=== PATIENT | female | born 1955 | race Caucasian/White ===

== ENCOUNTER 2020-02-11 10:09 | Emergency (ER) | payer OTHER ==
[~2020-02-11] VITALS: Ht 167.6 cm; Wt 74.8 kg
[2020-02-11] MEDS ORDERED: ASPI81CH PO (10:17)
[2020-02-11] MEDS ORDERED: AMLO10 PO (10:17)
[2020-02-11] MEDS ORDERED: CALCIUM 600 +1 EA11 PO (10:17)
[2020-02-11] MEDS ORDERED: ATOR20 PO (10:17)
[2020-02-11] MEDS ORDERED: FLUT.05NI (10:18)
[2020-02-11] MEDS ORDERED: Catapres0.2 MG PO (10:18)
[2020-02-11] MEDS ORDERED: HYDRA25 PO (10:19)
[2020-02-11] MEDS ORDERED: NOVOLOG100 UNIT/2 SC (10:19)
[2020-02-11] MEDS ORDERED: NOVOLOG100 UNIT/2 (10:19)
[2020-02-11] MEDS ORDERED: HYDCHL25 PO (10:19)
[2020-02-11] MEDS ORDERED: BASAGLAR K100 UNIT/1 SC (10:20)
[2020-02-11] MEDS ORDERED: LISI20 PO (10:21)
[2020-02-11] MEDS ORDERED: LITH300C PO (10:21)
[2020-02-11] MEDS ORDERED: MELA3 PO (10:21)
[2020-02-11] MEDS ORDERED: EUTHYROX137 MCG PO (10:21)
[2020-02-11] MEDS ORDERED: QUET25 PO (10:22)
[2020-02-11] MEDS ORDERED: METF500 PO (10:22)
[2020-02-11] MEDS ORDERED: NITR100CA PO (10:22)
[2020-02-11] MEDS ORDERED: QUET200 PO (10:22)
[2020-02-11] MEDS ORDERED: Hair, Skin & N1 EACH PO (10:22)
[2020-02-11] MEDS ORDERED: ROPI1 PO (10:23)
[2020-02-11] MEDS ORDERED: SENN187 PO (10:23)
[2020-02-11 11:10] LABS: BASOPHILS ABSOLUTE AUTO 0.05 K/mm3 (0.00-0.23); BASOPHILS PERCENT AUTO 1 % (0-2); EOSINOPHILS ABSOLUTE AUTO 0.22 K/mm3 (0.00-0.68); EOSINOPHILS PERCENT AUTO 3 % (0-6); IMMATURE GRAN ABSOLUTE AUTO 0.01 K/mm3 (0.00-0.10); IMMATURE GRAN PERCENT AUTO 0 % (0-1); LYMPHOCYTES ABSOLUTE AUTO 2.27 K/mm3 (0.84-5.20); LYMPHOCYTES PERCENT AUTO 30 % (21-46); MONOCYTES ABSOLUTE AUTO 0.52 K/mm3 (0.16-1.47); MONOCYTES PERCENT AUTO 7 % (4-13); Mean Corpuscular HGB 30.2 pg (26.0-34.0); Mean Corpuscular HGB Conc 32.6 g/dL (31.5-36.5); Mean Corpuscular Volume 93 fL (80-100); Mean Platelet Volume 11.3 fL (9.1-12.4); NEUTROPHILS ABSOLUTE AUTO 4.43 K/mm3 (1.96-9.15); NEUTROPHILS PERCENT AUTO 59 % (41-73); Platelet Count 162 K/mm3 (150-400); RDW Standard Deviation 51.7 fL (35.1-46.3); Red Blood Cell Count 4.63 M/mm3 (3.80-5.20)
[2020-02-11 11:12] LABS: Source, Urine Clean Catch
[2020-02-11 11:30] LABS: Alanine Aminotransfer (ALT/SGP 118 U/L (12-78); Albumin, Blood 3.1 g/dL (3.4-5.0); Albumin/Globulin Ratio 0.7 (0.8-1.8); Alk Phos 54 U/L (50-136); Anion Gap 3 mmol/L (6-16); Aspartate Aminotrans (AST/SGOT 50 U/L (12-37); Bilirubin, Total 0.2 mg/dL (0.1-1.0); Blood Urea Nitrogen 27 mg/dL (8-24); Bun/Creatinine Ratio 39.2 (12.0-20.0); CO2, Blood 29 mmol/L (21-32); Calcium, Blood 10.6 mg/dL (8.5-10.1); Chloride, Blood 106 mmol/L (98-108); Creatinine, Blood 0.69 mg/dL (0.40-1.00); Globulin, Blood 4.2 g/dL (2.2-4.0); Glomerular Filtration Rate >60 (60-); Glucose, Blood 259 mg/dL (70-99); Potassium, Blood 4.9 mmol/L (3.5-5.5); Sodium, Blood 138 mmol/L (136-145); Total Protein, Blood 7.3 g/dL (6.4-8.2)
[2020-02-11 11:41] LABS: Free Thyroxine 1.08 ng/dL (0.70-1.60); Thyroid Stimulating Hormone 27.5 uIU/mL (0.360-4.800)
[2020-02-11 12:09] LABS: Bilirubin, Urine Neg (Neg); Blood, Urine Neg (Neg); Glucose Qualitative, Urine 3+ (Neg); Ketones, Urine Neg (Neg); Leukocyte Esterase, Urine Neg (Neg); Nitrite, Urine Neg (Neg); Protein, Urine 3+ (Neg); Specific Gravity, Urine 1.015 (1.003-1.022); Urobilinogen, Urine NORM (Normal)
[2020-02-11 12:34] LABS: Appearance, Urine Hazy (Clear); Color, Urine Yellow (P-Yellow)
[2020-02-11 12:36] LABS: Bacteria Mod /hpf; Red Blood Cells, Urine 0-2 /hpf (0-2); Squamous Epithelial Cells Mod /hpf (Few)
== END 2020-02-11 15:00 | disposition home or self-care (01) ==
LOC: ER 10:09
PROVIDERS: Emergency Medicine
DX: E11.65 Type 2 diabetes mellitus with hyperglycemia (principal); E03.9 Hypothyroidism, unspecified; I10 Essential (primary) hypertension; Z79.82 Long term (current) use of aspirin; Z79.899 Other long term (current) drug therapy; Z79.4 Long term (current) use of insulin
CPT/HCPCS: 80053; 81001; 84439; 84443; 85025; 87086; 99285

== ENCOUNTER 2021-03-24 11:08 | Observation (INO) | payer OTHER ==
[~2021-03-24] VITALS: Ht 162.6 cm; Wt 63.6 kg
[~2021-03-24 11:08] MED LIST: AMLO10 PO; ASPI81CH PO; ATOR20 PO; BASAGLAR K100 UNIT/1 SC; CALCIUM 600 +1 EA11 PO; Catapres0.2 MG PO; EUTHYROX137 MCG PO; FLUT.05NI; HYDCHL25 PO; HYDRA25 PO; Hair, Skin & N1 EACH PO; LISI20 PO; LITH300C PO; MELA3 PO; METF500 PO; NITR100CA PO; NOVOLOG100 UNIT/2; NOVOLOG100 UNIT/2 SC; QUET200 PO; QUET25 PO; ROPI1 PO; SENN187 PO
[2021-03-24 11:26] LABS: Source, Urine Catheter
[2021-03-24 11:29] LABS: Appearance, Urine Clear (Clear); Bilirubin, Urine Neg (Neg); Blood, Urine Neg (Neg); Color, Urine Yellow (P-Yellow); Glucose Qualitative, Urine Neg (Neg); Ketones, Urine Neg (Neg); Leukocyte Esterase, Urine 2+ (Neg); Nitrite, Urine Neg (Neg); Protein, Urine 3+ (Neg); Specific Gravity, Urine 1.015 (1.003-1.022); Urobilinogen, Urine NORM (Normal)
[2021-03-24 11:38] LABS: BASOPHILS ABSOLUTE AUTO 0.05 K/mm3 (0.00-0.23); BASOPHILS PERCENT AUTO 1 % (0-2); EOSINOPHILS PERCENT AUTO 2 % (0-6); Hematocrit 36.9 % (33.0-51.0); Hemoglobin 12.4 g/dL (11.5-16.0); IMMATURE GRAN ABSOLUTE AUTO 0.02 K/mm3 (0.00-0.10); IMMATURE GRAN PERCENT AUTO 0 % (0-1); LYMPHOCYTES ABSOLUTE AUTO 2.35 K/mm3 (0.84-5.20); LYMPHOCYTES PERCENT AUTO 27 % (21-46); MONOCYTES ABSOLUTE AUTO 0.55 K/mm3 (0.16-1.47); MONOCYTES PERCENT AUTO 6 % (4-13); Mean Corpuscular HGB 28.8 pg (26.0-34.0); Mean Corpuscular HGB Conc 33.6 g/dL (31.5-36.5); Mean Corpuscular Volume 86 fL (80-100); Mean Platelet Volume 10.2 fL (9.1-12.4); NEUTROPHILS ABSOLUTE AUTO 5.54 K/mm3 (1.96-9.15); NEUTROPHILS PERCENT AUTO 64 % (41-73); Platelet Count 234 K/mm3 (150-400); RDW Coefficient Variation 16.9 % (11.7-14.2); White Blood Cell Count 8.71 K/mm3 (4.00-11.30)
[2021-03-24] MEDS ORDERED: Nicoderm Cq1 EAC1 TOP (11:43)
[2021-03-24] MEDS ORDERED: ONDA4ODT MM (11:45)
[2021-03-24] MEDS ORDERED: WEGOVY0.25 MG/0. SC (11:47)
[2021-03-24] MEDS ORDERED: ATOR10 PO (11:48)
[2021-03-24] MEDS ORDERED: METO25 PO (11:48)
[2021-03-24 11:56] LABS: Red Blood Cells, Urine 0-2 /hpf (0-2); Squamous Epithelial Cells Few /hpf (Few)
[2021-03-24 11:57] LABS: Amorphous Mod (0-Heavy); Bacteria Many /hpf
[2021-03-24 12:01] LABS: Alanine Aminotransfer (ALT/SGP 86 U/L (12-78); Albumin, Blood 2.6 g/dL (3.4-5.0); Albumin/Globulin Ratio 0.7 (0.8-1.8); Alk Phos 34 U/L (50-136); Anion Gap 3 mmol/L (6-16); Aspartate Aminotrans (AST/SGOT 31 U/L (12-37); Bilirubin, Total 0.2 mg/dL (0.1-1.0); Blood Urea Nitrogen 25 mg/dL (8-24); Bun/Creatinine Ratio 33.5 (12.0-20.0); CO2, Blood 26 mmol/L (21-32); Calcium, Blood 9.4 mg/dL (8.5-10.1); Chloride, Blood 108 mmol/L (98-108); Creatinine, Blood 0.75 mg/dL (0.40-1.00); Globulin, Blood 3.8 g/dL (2.2-4.0); Glomerular Filtration Rate >60 (60-); Glucose, Blood 277 mg/dL (70-99); Potassium, Blood 4.8 mmol/L (3.5-5.5); Sodium, Blood 137 mmol/L (136-145); Total Protein, Blood 6.4 g/dL (6.4-8.2)
[2021-03-24 16:07] LABS: Lithium 0.82 mmol/L (0.60-1.20)
--- NOTE | 2021-03-24 20:32 | NUR ---
NEW ADMIT PT ARRIVED TO 350 AT 2019. ADMITTED FOR LITHIUM TOXICITY & INCREASED CONFUSION. PT REPETITIVELY STATING "ELDA, ELDA". PT SLIDE TRANSFER TO BED. CALL LIGHT & BED ALARM IN PLACE. WILL MONITOR.
[2021-03-24 23:28] LABS: Lithium 0.58 mmol/L (0.60-1.20)
[2021-03-25] MEDS ORDERED: B-12500 MC2 (00:37)
[2021-03-25] MEDS ORDERED: TIOT18 INH (00:48)
--- NOTE | 2021-03-25 05:03 | NUR ---
SHIFT SUMMARY PT ADMITTED LAST NIGHT FOR INCREASED CONFUSION & LITHIUM TOXICITY. AOX1-SELF ONLY. STATES SHES IN "[place]". UNABLE TO FOLLOW ANY DIRECTIONS. YELLS OUT "MAMMA" CONSTANTLY WHILE AWAKE & ACTS CHILD LIKE, FEARFUL, SCARED, STATES "OWE" & USES SIMPLE 1-2 WORD STATEMENTS "I HURT". IMPULSIVE. CONFUSED. CAN BE IRRITABLE & GETS AGITATED c STAFF DURING CARE. WAS HITTING HERSELF IN HEAD WHILE MEMORIAL MARKER DESIGNER ATTEMPTED VITALS THIS AM. HAS PERIODS WHERE SHE IS COMPLETELY LUCID & MAKES COMMENTS LIKE "I WASNT THAT NICE TO YOU," OR "EVERYONE GOT A FLU SHOT AT [facility] IN [place]." WILL PINCH OR GRAB STAFF WRISTS WHILE TRYING TO GET BP, TAKES 2-3 PPL TO GET VITALS. VITALS HAVE BEEN STABLE SINCE PT HAS ARRIVED TO FLOOR. TELE NSR @60. INCONTINENT OF URINE. REPORTS "TOOTH PAIN & STOMACH ACHE ALLOVER," GAVE TYLENOL 1X & PT ABLE TO REST FOR ROUGHLY 3HRS STRAIGHT. GRIMACES c ABD PALPATION. ACTIVE BT. DENIES N/V. NO S/SX SOB. HASNT HAD BM THIS SHIFT. JAZMÍN CONSULT PLACED. NEEDS ASSISTANCE & QUEING c EATING. ATE 1/2 SANDWHICH & PUDDING @HS. PER REPORT PT HAS LOSS 26LBS IN LAST MONTH & HASNT BEEN EATING OR DRINKING MUCH @AR. CALL LIGHT & BED ALARM IN PLACE. TM.
[2021-03-25 05:04] LABS: BASOPHILS ABSOLUTE AUTO 0.07 K/mm3 (0.00-0.23); BASOPHILS PERCENT AUTO 1 % (0-2); EOSINOPHILS ABSOLUTE AUTO 0.21 K/mm3 (0.00-0.68); EOSINOPHILS PERCENT AUTO 3 % (0-6); Hematocrit 35.9 % (33.0-51.0); Hemoglobin 11.6 g/dL (11.5-16.0); IMMATURE GRAN ABSOLUTE AUTO 0.02 K/mm3 (0.00-0.10); IMMATURE GRAN PERCENT AUTO 0 % (0-1); LYMPHOCYTES ABSOLUTE AUTO 2.77 K/mm3 (0.84-5.20); LYMPHOCYTES PERCENT AUTO 35 % (21-46); MONOCYTES ABSOLUTE AUTO 0.58 K/mm3 (0.16-1.47); MONOCYTES PERCENT AUTO 7 % (4-13); Mean Corpuscular HGB Conc 32.3 g/dL (31.5-36.5); Mean Corpuscular Volume 87 fL (80-100); Mean Platelet Volume 10.5 fL (9.1-12.4); NEUTROPHILS ABSOLUTE AUTO 4.34 K/mm3 (1.96-9.15); NEUTROPHILS PERCENT AUTO 54 % (41-73); Platelet Count 234 K/mm3 (150-400); RDW Coefficient Variation 17.2 % (11.7-14.2); RDW Standard Deviation 54.4 fL (35.1-46.3); Red Blood Cell Count 4.15 M/mm3 (3.80-5.20); White Blood Cell Count 7.99 K/mm3 (4.00-11.30)
[2021-03-25 06:00] LABS: Lithium 0.43 mmol/L (0.60-1.20)
[2021-03-25 06:12] LABS: Alanine Aminotransfer (ALT/SGP 72 U/L (12-78); Albumin, Blood 2.5 g/dL (3.4-5.0); Albumin/Globulin Ratio 0.8 (0.8-1.8); Alk Phos 33 U/L (50-136); Anion Gap 5 mmol/L (6-16); Aspartate Aminotrans (AST/SGOT 24 U/L (12-37); Bilirubin, Total 0.2 mg/dL (0.1-1.0); Blood Urea Nitrogen 16 mg/dL (8-24); Bun/Creatinine Ratio 25.6 (12.0-20.0); CO2, Blood 21 mmol/L (21-32); Calcium, Blood 8.8 mg/dL (8.5-10.1); Chloride, Blood 117 mmol/L (98-108); Creatinine, Blood 0.63 mg/dL (0.40-1.00); Globulin, Blood 3.1 g/dL (2.2-4.0); Glomerular Filtration Rate >60 (60-); Glucose, Blood 183 mg/dL (70-99); Magnesium, Blood 1.9 mg/dL (1.6-2.4); Sodium, Blood 143 mmol/L (136-145); Total Protein, Blood 5.6 g/dL (6.4-8.2)
--- NOTE | 2021-03-25 07:39 | NUR ---
POISON CONTROL- POISON CONTROL NOTIFIED PER ORDER OF LITHIUM TOXICITY. LEVELS NOTED TO THEM AND DOWN TRENDING. PER POISON CONTROL THEY WILL CHECK BACK IN ONE MORE TIME TODAY TO FOLLOW UP BUT NO OTHER RECOMMENDATIONS.
--- NOTE | 2021-03-25 16:48 | NUR ---
PT IS ALERT ORIENTED TO SELF ONLY AT THIS TIME. THE PT APPEARS TO BE BREATHING EASILY ON RA AT THIS TIME. THE PT HAS HAD A FEW OUTBURST OF AGITATION MORE THIS AFTERNOON SERAQUEL WAS GIVEN THIS AFTERNOON. OTHERWISE, THE PT HAS BEEN MOSTLY COOPERATIVE AND SOMULANT. THE PT WAS ABLE TO WORK WITH THE PHYSICAL THERAPIST TODAY AND AMBULATED TO THE BATHROOM. BED ALARM ON, CALL LIGHT IN REACH, WILL CONTINUE TO MONITOR AND ASSESS FOR CHANGES
--- NOTE | 2021-03-26 05:34 | NUR ---
PATIENT IS A&OX2. KNOWS SHE IS IN THE HOSPITAL BUT DOES NOT KNOW WHY. SHE STATES SHE WAS IN THE [facility]. PATIENT IS COMPLIANT WITH MEDICATION ADMINISTRATION. SWALLOWED PILLS ONE AT A TIME WITH WATER, TOOK MULTIPLE CUES. MAY DO BETTER IN . NO BEHAVIORAL OUTBURSTS ON NOC. SCREAMS OUT MAMA AND INTERMITTENT CONFUSION. INCONT/CONT HAD MULTIPLE WET BRIEFS BUT ALSO WAS ABLE TO VOID ON BSC. TELE NSR PER CABLE TOOL DRILLER
[2021-03-26 10:17] LABS: BASOPHILS ABSOLUTE AUTO 0.06 K/mm3 (0.00-0.23); BASOPHILS PERCENT AUTO 1 % (0-2); EOSINOPHILS ABSOLUTE AUTO 0.18 K/mm3 (0.00-0.68); EOSINOPHILS PERCENT AUTO 3 % (0-6); Hematocrit 36.3 % (33.0-51.0); Hemoglobin 11.9 g/dL (11.5-16.0); IMMATURE GRAN ABSOLUTE AUTO 0.01 K/mm3 (0.00-0.10); IMMATURE GRAN PERCENT AUTO 0 % (0-1); LYMPHOCYTES ABSOLUTE AUTO 2.15 K/mm3 (0.84-5.20); LYMPHOCYTES PERCENT AUTO 34 % (21-46); MONOCYTES ABSOLUTE AUTO 0.37 K/mm3 (0.16-1.47); MONOCYTES PERCENT AUTO 6 % (4-13); Mean Corpuscular HGB 28.4 pg (26.0-34.0); Mean Corpuscular HGB Conc 32.8 g/dL (31.5-36.5); Mean Corpuscular Volume 87 fL (80-100); Mean Platelet Volume 9.9 fL (9.1-12.4); NEUTROPHILS ABSOLUTE AUTO 3.61 K/mm3 (1.96-9.15); NEUTROPHILS PERCENT AUTO 57 % (41-73); Platelet Count 203 K/mm3 (150-400); RDW Coefficient Variation 17.6 % (11.7-14.2); RDW Standard Deviation 56.1 fL (35.1-46.3); Red Blood Cell Count 4.19 M/mm3 (3.80-5.20); White Blood Cell Count 6.38 K/mm3 (4.00-11.30)
[2021-03-26 10:47] LABS: Anion Gap 6 mmol/L (6-16); Blood Urea Nitrogen 14 mg/dL (8-24); Bun/Creatinine Ratio 23.2 (12.0-20.0); CO2, Blood 20 mmol/L (21-32); Calcium, Blood 8.2 mg/dL (8.5-10.1); Chloride, Blood 115 mmol/L (98-108); Glomerular Filtration Rate >60 (60-); Glucose, Blood 362 mg/dL (70-99); Potassium, Blood 4.1 mmol/L (3.5-5.5); Sodium, Blood 141 mmol/L (136-145)
--- NOTE | 2021-03-26 16:58 | NUR ---
PT IS A/OX2 PERSON AND PLACE. THE PT CONTINUES TO ASK WHAT BROUGHT HER HERE TO THE HOSPITAL, [facility]. PT DOES SEEM MORE COGNITIVE CLEAR COMPARED TO YESTERDAY BENJAMÍN. THE PT WAS AGGITATED THIS AM A DOSE OF SERAQUEL WAS GIVEN AND SO FAR THE PT HAS BEEN CALMER. PT HAS HAD A GOOD APPETITE AND HAS BEEN DRINKING FLUIDS. THE PT TRIED TO WEAR THE ORDERED SCD'S , HOWEVER, BECAME FRUSTRATED AND ANGRY WITH THEM AFTER A SHORT WHILE AND DEMANDED TO TAKE THEM OFF. CALL LIGHT IN REACH. BED ALARM ON WILL CONTINUE TO MONITOR AND ASSESS FOR CHANGES
--- NOTE | 2021-03-27 03:58 | NUR ---
A&OX2 REMAINS WITH CONFUSION, INTERMITTENT BEHAVIORAL OUTBURSTS ON NOC, EASILY REDIRECTED. ABLE TO USE BSC WITH SBA FOR VOIDING. ALERTS STAFF WHEN SHE NEEDS TO URINATE. NO BM >2 DAYS MIRALAX GIVEN. PATIENT REFUSED SUPPOSITORY EDUCATION ATTEMPTED, PATIENT GREW FRUSRATED. HAS DIFFICULTY FOLLOWING COMMANDS TAKES NUMEROUS CUES. NS @125.
[2021-03-27 05:06] LABS: BASOPHILS ABSOLUTE AUTO 0.06 K/mm3 (0.00-0.23); BASOPHILS PERCENT AUTO 1 % (0-2); EOSINOPHILS ABSOLUTE AUTO 0.16 K/mm3 (0.00-0.68); EOSINOPHILS PERCENT AUTO 3 % (0-6); Hemoglobin 12.3 g/dL (11.5-16.0); IMMATURE GRAN ABSOLUTE AUTO 0.01 K/mm3 (0.00-0.10); IMMATURE GRAN PERCENT AUTO 0 % (0-1); LYMPHOCYTES PERCENT AUTO 39 % (21-46); MONOCYTES ABSOLUTE AUTO 0.36 K/mm3 (0.16-1.47); MONOCYTES PERCENT AUTO 6 % (4-13); Mean Corpuscular HGB 28.5 pg (26.0-34.0); Mean Corpuscular HGB Conc 32.4 g/dL (31.5-36.5); Mean Corpuscular Volume 88 fL (80-100); Mean Platelet Volume 10.1 fL (9.1-12.4); NEUTROPHILS ABSOLUTE AUTO 3.01 K/mm3 (1.96-9.15); NEUTROPHILS PERCENT AUTO 51 % (41-73); Platelet Count 210 K/mm3 (150-400); RDW Coefficient Variation 17.6 % (11.7-14.2); RDW Standard Deviation 57.1 fL (35.1-46.3); Red Blood Cell Count 4.31 M/mm3 (3.80-5.20)
[2021-03-27 06:08] LABS: Anion Gap 6 mmol/L (6-16); Blood Urea Nitrogen 16 mg/dL (8-24); Bun/Creatinine Ratio 21.6 (12.0-20.0); CO2, Blood 23 mmol/L (21-32); Calcium, Blood 8.7 mg/dL (8.5-10.1); Chloride, Blood 112 mmol/L (98-108); Creatinine, Blood 0.74 mg/dL (0.40-1.00); Glomerular Filtration Rate >60 (60-); Glucose, Blood 352 mg/dL (70-99); Potassium, Blood 4.7 mmol/L (3.5-5.5); Sodium, Blood 141 mmol/L (136-145)
--- NOTE | 2021-03-27 17:31 | NUR ---
SHIFT SUMMARY: PT A/O X 2 NEEDS RE-ORIENTATED AT TIMES TO SITUATION. PT SLEPT MOST OF THE MORNING. SHE HAS HAD SEVERAL OUTPUTS OF URINE. SHE IS CONTINENT/INCONTINENT AT THIS TIME. PT BP HAS BEEN ELEVATED T/OUT THE DAY. PRN HYDRALAZINE GIVEN PER MAR FOR SBP OF 184. HAS ADUSTED BP MEDICATIONS AND ALSO INCREASED SLIDING SCALE INSULIN AND WILL START LANTUS TONIGHT FOR ELEVATED BS IN 300'S. PT C/O BLADDER SPASMS AND BECAME VERY AGITATED THIS EVENING. TYLENOL GIVEN FOR BLADDER SPASMS AND PT EDUCATED ON SYMPTOMS OF UTI. PT CONTINUED TO YELL AND HAVE BEHAVIORS DESPITE EXPLANATION AND ADDRESSING SYMPTOMS SO PRN SEROQUEL GIVEN FOR AGITATION.
--- NOTE | 2021-03-27 21:11 | NUR ---
PHYSICIAN COMMUNICATION CONTACTED FULLER BRUSH MAN PHYSICIAN, DR GUTIERREZ, TO NOTIFY HIM THAT THE PATIENT HAD A BLOOD SUGAR OF 367 AND WAS SCHEDULED TO HAVE COVERAGE OF 10 UNITS OF SEMGLEE AT 2100 AND MEDIUM SLIDING SCALE AT MEAL TIMES. NO ORDERS GIVEN. ALSO NOTIFIED THAT THE PATIENT WAS REQUESTING A NASAL DECONGESTANT SPRAY. DR GUTIERREZ ORDERED AFRIN NASAL SPRAY BID PRN.
[2021-03-28 05:12] LABS: BASOPHILS ABSOLUTE AUTO 0.04 K/mm3 (0.00-0.23); BASOPHILS PERCENT AUTO 1 % (0-2); EOSINOPHILS ABSOLUTE AUTO 0.16 K/mm3 (0.00-0.68); EOSINOPHILS PERCENT AUTO 3 % (0-6); Hematocrit 35.5 % (33.0-51.0); Hemoglobin 11.5 g/dL (11.5-16.0); IMMATURE GRAN ABSOLUTE AUTO 0.01 K/mm3 (0.00-0.10); IMMATURE GRAN PERCENT AUTO 0 % (0-1); LYMPHOCYTES PERCENT AUTO 34 % (21-46); MONOCYTES ABSOLUTE AUTO 0.34 K/mm3 (0.16-1.47); MONOCYTES PERCENT AUTO 6 % (4-13); Mean Corpuscular HGB 28.2 pg (26.0-34.0); Mean Corpuscular HGB Conc 32.4 g/dL (31.5-36.5); Mean Corpuscular Volume 87 fL (80-100); Mean Platelet Volume 10.2 fL (9.1-12.4); NEUTROPHILS ABSOLUTE AUTO 3.17 K/mm3 (1.96-9.15); NEUTROPHILS PERCENT AUTO 57 % (41-73); Platelet Count 195 K/mm3 (150-400); RDW Coefficient Variation 17.7 % (11.7-14.2); Red Blood Cell Count 4.08 M/mm3 (3.80-5.20); White Blood Cell Count 5.62 K/mm3 (4.00-11.30)
[2021-03-28 06:00] LABS: Anion Gap 5 mmol/L (6-16); Blood Urea Nitrogen 20 mg/dL (8-24); CO2, Blood 23 mmol/L (21-32); Calcium, Blood 8.5 mg/dL (8.5-10.1); Chloride, Blood 112 mmol/L (98-108); Creatinine, Blood 0.74 mg/dL (0.40-1.00); Glomerular Filtration Rate >60 (60-); Glucose, Blood 339 mg/dL (70-99); Potassium, Blood 4.1 mmol/L (3.5-5.5); Sodium, Blood 140 mmol/L (136-145)
--- NOTE | 2021-03-28 06:29 | NUR ---
SHIFT SUMMARY PATIENT ALERT AND ORIENTED X2. MEDICATED PER EMAR FOR PAIN AND NASAL CONGESTION. SHE HAD NO COMPLAINTS OF SHORTNESS OF BREATH. BED IN LOWEST POSITION WITH WHEELS LOCKED AND ALARM ON. CALL LIGHT WITHIN REACH. REPORT GIVEN TO ONCOMING RN.
--- NOTE | 2021-03-28 17:19 | NUR ---
SHIFT SUMMARY PATIENT IS ALERT AND ORIENTED X2. PATIENT BECOMES AGRESSIVE AT TIMES AND NEEDS TO BE REORIENTATED TO CALM DOWN. PATIENT HAS BEEN A ONE PERSON ASSIST TO BEDSIDE COMMODE. PATIENT DOESNT CALL APPROPRIATELY AND JUST USES BEDSIDE COMMODE URGENTLY. PATIENTS CBGS HAVE BEEN ELEVATED AND NOTIFIED. IV REMAINS PATENT. NO ACUTE EVENTS THIS SHIFT. VITAL SIGNS REVIEWED. CALL LIGHT IN PLACE. WILL MONITOR UNTIL SHIFT CHANGE.
--- NOTE | 2021-03-29 06:04 | NUR ---
SHIFT SUMMARY PATIENT ALERT AND ORIENTED X2. HAD NO COMPLAINTS OF PAIN OR SHORTNESS OF BREATH. NO ACUTE ISSUES NOTED OVERNIGHT. BED IN LOWEST POSITION WITH WHEELS LOCKED AND ALARM ON. CALL LIGHT WITHIN REACH. REPORT GIVEN TO ONCOMING RN.
--- NOTE | 2021-03-29 16:49 | NUR ---
SHIFT SUMMARY PATIENT IS ALERT AND ORIENTED X2 WITH CONFUSION. PATIENT HAS BEEN PLEASENT AND COOPERATIVE WITH CARE WITH MILD AGRESSION AND FRUSTRATION. PATIENT HAS HAD ELEVATED CBG IN THE 300-400S AND HAS HAD LONG ACTING INSULIN ADDED FOR COVERAGE. PATIENT HAS HAD NO ACUTE EVENTS THIS SHIFT. VITAL SIGNS REVIEWED. CALL LIGHT IN PLACE. WILL MONITOR UNTIL SHIFT CHANGE.
--- NOTE | 2021-03-29 22:52 | NUR ---
PHYSICIAN COMMUNICATION CONTACTED AIRCRAFT STRUCTURAL DESIGN ENGINEER PHYSICIAN, DR. JOHNSON, TO NOTIFY HIM THAT THE PATIENT IS COMPLAINING OF PAIN FROM RESTLESS LEGS. DR JOHNSON ORDERED O.25 MG REQUIP DAILY AT BEDTIME NEEDED FOR RESTLESS LEGS.
--- NOTE | 2021-03-30 05:48 | NUR ---
SHIFT SUMMARY PATIENT ALERT AND ORIENTED X2. MEDICATED PER EMAR FOR PAIN. NO COMPLAINTS OF SHORTNESS OF BREATH. NO ACUTE ISSUES NOTED OVERNIGHT. BED IN LOWEST POSITION WITH WHEELS LOCKED AND ALARM ON. CALL LIGHT WITHIN REACH. REPORT GIVEN TO ONCOMING RN.
--- NOTE | 2021-03-30 17:45 | NUR ---
PATIENT HAD A GOOD DAY. HEADACHE RESOLVED. VERY PLEASANT AND COOPERATIVE WITH CARE THIS EVENING. BLOOD SUGARS ELEVATED, INCREASED TO HIGH SLIDING SCALE. SKIN INTACT. CONTINENT OF URINE AND STOOL. IV TO R WRIST WNL AND SL. TELE D/C'D. PATIENT AWAITING PLACEMENT.
--- NOTE | 2021-03-31 04:24 | NUR ---
SUMMARY: PT A/OX3 BUT IS OCCASIONALLY FORGETFUL TO EVENT W/REMINDERS PROVIDED PRN. SHE CALLS APPROPRIATELY TO SPECIFY NEEDS AND WAS PLEASANT AND COOPERATIVE W/CARE. SHE'S UP AD ANNAMARIA TO BSC AND SBA FOR DISTANCE. TYLENOL RECIEVED PRN FOR TOLERABLE RELIEF OF MILLER AND SNACKS PROVIDED PER PT REQUEST. NO ACUTE CHANGES, VSS/AFEBRILE. PLACEMENT PENDING. WCTM AND REPORT TO DAY RN.
--- NOTE | 2021-03-31 17:03 | NUR ---
PATIENT A/OX3 THIS SHIFT, UP INDEPENDENTLY TO BSC. UP WITH FWW AND GB IN HALLS, WOEKED WITH PT/OT TODAY. PATIENT HAS BEEN CONSTIPATED, BOWEL CARE ORDERED AND SHE WAS ABLE TO HAVE A BM TODAY. VSS, ON RA. BLOOD GLUCSE ELEVATED TODAY, DIABETIC MEDS WERE ADJUSTED. SKIN INTACT. PLEASANT AND COOPERATIVE WITH CARE TODAY. GUARDIANSHIP LETTER IN CHART. PATIENT AWAITING PLACEMENT.
--- NOTE | 2021-04-01 04:44 | NUR ---
SHIFT SUMMARY PT IS AA0X3 . PT I STILL COMPLAINING OF CONSTIPATION.VSS REVIEWED. ALL MEDS GIVEN PER EMAR. PT IS INDEPENDENT TO BSC. PT IS ABLE TO MAKE HER NEEDS KNOWN. NO COMPLAINTS OF PAIN OR SOB. CALL LIGHT IN REACH. WILL CONTINUE TO MONITOR .
--- NOTE | 2021-04-01 16:46 | NUR ---
SHIFT SUMMARY PT AWAKE AT START OF SHIFT. INDEPENDENT IN AND TO BTM. PT C/O CONSTIPATION. BOWEL CARE GIVEN. PT LATER REQUESTED MORE BOWEL CARE; MIRALAX GIVEN WITH APPLE JUICE. DR ANDRADE IN TO SEE PT SOON AFTER. PT REQUESTED AND INSISTED ON RECEIVING A SUPPOSITORY; NEW ORDERS PLACED. PT IS VERY FORGETFUL AND DOES NOT REMEMBER WHEN THE DR'S COME BY AND TALK WITH HER. DR JOHNSON AND DR ANDRADE BOTH IN TO SEE PT AND PT DOES NOT REMEMBER. PT UP TO SHOWER THIS AFTERNOON. LINENS AND GOWN CHANGED. PT BACK TO BED. CALL LT IN REACH.
--- NOTE | 2021-04-02 04:26 | NUR ---
SHIFT SUMMARY PT IS AWAKE AND ALERT TO HERSELF . PT IS CONFUSED AND FORGETFUL.WILL ASK THE SAME QUESTION OVER AND OVER.ALL MEDS WERE GIVEN PER EMAR . ALL BOWEL CARE GIVEN. PT HAD ONE BM FOR THE NIGHT. PT WAS AGITATED AND RESTLESS ALL NIGHT.PT SLEPT INTERMITENTLY. PT IS INDEPENDENT TO BATHROOM. VSS REVIEWED. WILL CONTINUE TO MONITOR.
--- NOTE | 2021-04-02 18:15 | NUR ---
SHIFT SUMMARY PT SLEEPING AT START OF SHIFT. WOKE EASILY FOR CARE. UP TO BTHRM INDEPENDENTLY; STILL C/O CONSTIPATION. BOWEL CARE GIVEN. PT'S ABD IS SOFT AND SLIGHTLY BLOATED. PT INFORMED DR SANTO TAPIA GIVEN THIS AFTERNOON. PT ENCOURAGED TO WALK AROUND RM OR OUT IN TO HALLS. PT MOSTLY STAYED IN BED TODAY; NOT UP TO CHAIR MUCH. NO OTHER C/O. CALL LT IN REACH. PER REPORT, PT CONTINUES TO WAIT PLACEMENT. PLEASANT AND CO-OP WITH CARE.
--- NOTE | 2021-04-03 04:38 | NUR ---
SHIFT SUMMARY PT IS AWAKE AND ALERT TO HERSELF,CONFUSED AT TIMES.PT HAD A BM FOR THE SHIFT. ALL MED WERE GIVEN A PER EMAR. PT WAS COMPLAING OF RESTLES LEG SYNDROME, REQUIP WAS GIVEN ORDERED.VSS REVIEWED. BED IN LOWER POSITION AND CALL LIGHT WITHIN REACH. PT IS AWAITING ON PLACEMENT. WILL CONTINUE TO MONITOR.
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
--- NOTE | 2021-04-04 04:44 | NUR ---
SHIFT SUMMARY PT WAS AGITATED AND RESTLESS ALL NIGHT. REMOVED ALL HER CLOTHES AND WALKED NAKED IN THE ROOM, TALKING LOUDLY,VERY CONFUSED.ATTENTION SEEKING BEHAVIOR,YELLING INAPPROPRIATE WORDS. INAPPROPRIATE USE OF CALL LIGHT,PRETENDING SHE DOESNT KNOW HOW TO USE IT BUT ABLE TO CHANGE TV TO THE STATION OF CHOICE. PT PULLED BATHROOM LIGHT FOR HELP AND C/O LEG PAIN NOT ABLE TO BE COOPERATIVE WITH CARE AT TIMES. PT WAS TALKING TO SELF AND RESPONDING WHILE ACTING OUT AND YELLING, "WHY WON'T ANYBODY HELP ME WITH THIS REMOTE!" THIS NURSE HAS MADE FREQUENT TRIPS IN THE PT ROOM TO ASSIST ALL SHIFT. PT HAS IMPULSIVE BEHAVIORS AND WALKS INTO HALLWAY YELLING DISTURBING OTHERS. PT MEDICATED PER EMAR AND REMAINS RESTLESS THE ENTIRE SHIFT.WILL CONTINUE TO MONITOR.
[2021-04-04 05:20] LABS: Candida species (DNA Probe) Negative (NEGATIVE); G. vaginalis (DNA Probe) Negative (NEGATIVE); T. vaginalis (DNA Probe) Negative (NEGATIVE)
--- NOTE | 2021-04-04 19:42 | NUR ---
SUMMARY- PT ALERT TO SELF AND PLACE. INDEPENDANT IN ROOM. TOLERATING FOOD AND FLUIDS. STARTED ON LAXATIVE THIS AM. PT HAD BM 2 DAYS AGO BUT STATES SHE IS CONSTIPATED. GAVE PRUNE JUICE AND GLYCERINE SUPP THIS PM. TYLENOL THIS PM FOR HEADACHE. PT NAPPED ON/OFF TODAY. PERSEVERATES ON SUBJECTS AND GETS FRUSTRATED BUT DIRECTABLE AND COOPERATIVE.
--- NOTE | 2021-04-05 04:55 | NUR ---
SHIFT SUMMARY PT WAS VERY RESTLESS ,AGITATED AND CONFUSED. PT REFUSED TO STAY IN BED.PT RECEIVED ALL MEDS ALONG WITH PRN AND STILL REMAINS AGITATED AND RESTLESS.PT KEPT WALKING BACH AND FORTH IN ROOM, DOESNT WANT TO KEEP CLOTHES ON ,KEEPS CALLING FOR NO REASON, TALKING TO HER SELF.MD WAS MADE AWARE OF PT'S BEHAVIOR. ATIVAN WAS ORDERED. NEW IV WAS PLACED AFTER THREE ATTEMPTS SINCE PT DIDNT WANT TO STAY STILL.ATIVAN WAS GIVEN AND PT SLEPT AFTERWARD. BED IN LOWER POSITION AND CALL LIGHT IN REACH. WILL CONTINUE TO MONITOR.
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
--- NOTE | 2021-04-05 18:40 | NUR ---
SUMMARY- PT ALERT TO SELF. VERY SLEEPY UNTIL LUNCH. DEPRESSED AND STATES SHE WANTS ALL STAFF TO LEAVE HER ALONE. SHE IS VERY UPSET WITH THE CARE OF THE NIGHT NURSES AND THAT SHE WAS NOT LISTENED TO AND LEFT TO POOP IN HER BED AND IGNORES. REFUSED 1400 MEDS AND SLEPT MOST OF THE AFTERNOON. HAD STATES SHE WANTS TO . SHE JUST WANTS A CIGARETTE. WHE PERSEVERATES ON A SUBJECT AND GETS WORKED UP AND HAS NO COPING. GOT UP AND AMBULATED IN AC ONCE BEFORE DINNER. TOLERATING ALL MEALS AND FLUIDS. VOIDING. MEDICATED WITH SEREQUIL PM FOR AGITATION. REPORTING RESTLESS LEGS. WILL REPORT TO NOC RN.
--- NOTE | 2021-04-06 02:44 | NUR ---
WINSTON HUSAIN, DID NOTIFY DR ANNE OF PATIENT FALL. NO NEW ORDERS.
--- NOTE | 2021-04-06 03:41 | NUR ---
PATIENT HAS HAD A VERY ACTIVE NIGHT. I DID MEDICATE HER AT THE BEGINNING OF SHIFT WITH PRN ATIVAN AND THAT ASSISTED WELL WITH CALMING HER DOWN AND ALLOWING HER TO GET SOME REST. PATIENT WOKE SOMETIME AFTER MIDNIGHT AND ATTEMPTED TO GET UP TO USE THE BATHROOM AND FELL, SEE DOCUMENTATION ON THAT IN POST-FALL ASSESSMENT. SHE HAS SINCE BECOME VERY ANXIOUS AND DIFFICULT TO REDIRECT, CALLING CONSTANTLY FOR SNACKS AND USING THE BATHROOM EVEN WHEN SHE HAS SNACKS IN HER POSSESSION OR WAS JUST ASSISTED UP TO THE TOILET. THE PATIENT BECOMES VERY IRRITABLE WITH STAFF WHEN THEY DO NOT DO SHE EXPECTS. A SECOND DOSE OF ATIVAN WAS GIVEN AND THE PATIENT IS NOW ASLEEP IN BED. CALL LIGHT WITHIN REACH.
--- NOTE | 2021-04-06 09:00 | NUR ---
PT PLEASANTLY CONFUSED TODAY. KNOWS NAME, FOLLOWS DIRECTION. H/R REG, NO MURMER NOTED. NO TELE. LUNGS CLEAR, RESP EASY, UNLABORED. BT X4 LAST BM 2 DAYS. VOIDS SBA TO BATHROOM. BED IN LOW POSITION, CALL LITE IN REACH, POSY ON FOR FALL RISK. BED ALARM ON FOR SAFETY
--- NOTE | 2021-04-06 17:04 | NUR ---
PT HAS BEEN FIXATED ON BM TODAY. DID HAVE MED UNFORMED BM THIS AFT. STATES NEEDS TO HAVE MORE. DID ADVISE HER TO NOT DIG WHEN ON COMMODE THIS IS WHAT HE BEGAN TO DO. GAVE ATIVAN FOR ANX. BROWN COW X2 TO ASSIST HER IN BOWEL CARE. POSY RESTRAINTS REMOVED THIS AM. BED ALARM AND MONITOR ON FOR SAFETY .
[2021-04-06 23:11] LABS: CHLAMYDIA TRACHOMATIS, NAA Negative (Negative)
--- NOTE | 2021-04-07 05:20 | NUR ---
PATIENT HAD A RESTLESS NIGHT. SHE SEEMED TO HAVE TROUBLE STAYING ASLEEP HOWEVER WAS APPARENTLY VERY TIRED. SHE GOT TO THE POINT THAT SHE WAS TOO TIRED TO EVEN GET HERSELF OUT OF BED, EVEN WITH STAFF ASSIST, TO GET TO THE BSC. SHE REQUIRED THE USE OF THE BEDPAN FOR SAFE MEASURES. PATIENT CAN BE VERY DIFFICULT TO REDIRECT AND OFTEN ASKS THE SAME QUESTIONS OVER AND OVER AGAIN. SHE BECOMES STUCK ON A THOUGHT AND WONT LET IT GO. AT APPROXIMATELY 0200 THE PATIENT FINALLY FELL TO A GOOD SLEEP AND HAS BEEN ASLEEP SINCE. CALL LIGHT WITHIN REACH.
--- NOTE | 2021-04-07 18:45 | NUR ---
SHIFT SUMMARY PT SLEEPING MOST OF THE DAY. WHEN AWAKE SAYS SHE WANTS TO WATCH TV, SAYS SHE CAN HEAR IT BUT CAN'T SEE IT. NEEDED TO EXPLAIN TO PT SHE NEEDED TO ROLL ON HER BACK OR GET IN CHAIR TO SEE THE TV. WOULD SAY THE TV IS IN THE WRONG PLACE. SUDDENLY CHANGES SUBJECT AT HAND WHEN TALKING ABOUT WHATEVER SHE HAS BROUGHT UP. UP TO BSC INDEPENDENTLY AND APPEARS STABLE ON HER FEET WHEN TRANSFERRING. NO ATTEMPTS TO COME OUT OF ROOM AND WALK AROUND.
--- NOTE | 2021-04-07 23:37 | NUR ---
PT VERY AGITATED WITH THIS RN AND THE METAL WIRE COATING OPERATOR. PT SAYS THAT SHE HAD BEEN WAITING AN HOUR FOR US TO ANSWER HER CALL LIGHT TO USE THE RESTROOM - PT HAD NOT PRESSED CALL LIGHT. PT ALSO COMPLAINED THAT SHE DID NOT GET HOT CHOCOLATE LIKE SHE DID LAST NIGHT. I BROUGHT HER SOME SUGAR FREE HOT CHOCOLATE FROM ANOTHER UNIT AND SHE COMPLAINED THAT "IT TOOK TOO LONG". PT ALSO COMPLAINED OF HEADACHE SO WAS GIVEN TYLENOL AND RESPONDED WITH "IS THAT ALL YOU'RE GOING TO GIVE ME IS REGULAR TYLENOL?" PT APPEARS VERY ANXIOUS AND AGITATED SO MEDICATED WITH ATIVAN. SHE IS RESTING WELL AT THIS TIME.
--- NOTE | 2021-04-08 04:39 | NUR ---
[employer] MEMBERSHIP SALES AGENT SUMMARY ADMITTED FOR LITHIUM TOXICITY - RESOLVED. PT IS FULL CODE. PLAN FOR DISCHARGE ONCE SHE IS PLACED. SHE IS FROM THE [facility]. PT BECAME VERY AGITATED WITH STAFF AT THE START OF SHIFT. SHE LOST TRACK OF TIME BETWEEN ROUNDINGS AND CARE. PT BECOMES VERY FIXATED ON VARIOUS PARTS OF STAFF CARE. SHE WAS MEDICATED WITH TYLENOL FOR COMPLAINT OF A HEADACHE AND MEDICATED WITH ATIVAN DUE TO AGITATION/ANXIETY. PT HAS BEEN SLEEPING THROUGHOUT THE SHIFT. SHE IS VERY IMPULSIVE - BED ALARM IS ON. NO OTHER CONCERNS THIS SHIFT.
--- NOTE | 2021-04-08 18:40 | NUR ---
SHIFT SUMMARY PT UP FOR EACH MEAL TODAY. 1 PERSON BUT CAN BE INDEPENDENT. THIS EVENING SHE SAYS SHE HAS NO HOME NOW, NO PLACE TO GO AND VOICE SOUNDS SAD. HAS HAD A MORE COOPERATIVE ATTITUDE TODAY OVER YESTERDAY. SAYS "I'M TRYING TO DO BETTER WITH MY BEHAVIOR-WHY CAN'T THEY SEE THE GOOD TIMES" AFTER EXPLAINING ITS BEHAVIOR SHE HAS EXHIBITED IN THE PAST.
--- NOTE | 2021-04-08 21:11 | NUR ---
AFTER REVIEWING PT'S PREVIOUS CHEMBG AND CURRENT READING OF 129, I HAVE MADE THE CLINICAL JUDGMENT TO HOLD PT'S LANTUS WELL HER HUMALOG. ACCORDING TO READINGS, THE PT DROPPED FROM THE 300S TO 88 WITH HER 30 UNITS OF LANTUS.
[2021-04-08 22:41] LABS: Source, Urine Voided
[2021-04-08 23:07] LABS: Appearance, Urine Clear (Clear); Bilirubin, Urine Neg (Neg); Blood, Urine Neg (Neg); Color, Urine Yellow (P-Yellow); Glucose Qualitative, Urine Neg (Neg); Ketones, Urine Neg (Neg); Leukocyte Esterase, Urine Neg (Neg); Nitrite, Urine Neg (Neg); Protein, Urine 2+ (Neg); Specific Gravity, Urine 1.005 (1.003-1.022); Urobilinogen, Urine NORM (Normal); pH, Urine 6.5 (5.0-8.0)
[2021-04-08 23:37] LABS: Bacteria Rare /hpf; Red Blood Cells, Urine 0-2 /hpf (0-2); Squamous Epithelial Cells Few /hpf (Few); White Blood Cells, Urine 0-2 /hpf (0-5)
--- NOTE | 2021-04-09 06:18 | NUR ---
FISCAL CLERK SUMMARY PT ALERT AND ORIENTED TO SELF AND SITUATION. SHE IS VERY AGITATED WITH CARE AND IMPULSIVE. BED ALARM IN PLACE. SHE IS VERY DEMANDING AND IS BERATING STAFF FOR A SHOWER. I EXPLAINED TO HER THE LACK OF STAFF ON FISCAL CLERK AND THE SAFETY RISK OF A SHOWER AT 2300. PT AGREEABLE. I GAVE HER REQUIP FOR HER RESTLESS LEGS AT TIME OF NIGHT MEDICATIONS BUT REPORTED THAT "I AM UNABLE TO LAY STILL AND I'M IN EXCRUCIATING PAIN. I NEED TO GET UP AND WALK." SHE WAS INSTRUCTED TO STAY IN BED DUE TO FALL RISK, THEN DEMANDING "THAT IV STUFF" TO HELP HER SLEEP. PT MEDICATED WITH IV ATIVAN TO REDUCE HER ANXIETY AND PT WOKE UP SHORTLY AFTER, SAYING "IT'S NOT WORKING". I TURNED THE PT'S TV DOWN AND TUCKED HER IN WITH WARM BLANKETS; PT SLEPT THROUGHOUT THE SHIFT.
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
--- NOTE | 2021-04-09 18:38 | NUR ---
SHIFT SUMMARY PT TEARFUL THIS MORNING SAYING SHE IS ALL ALONE, NO ONE IS HERE TO SEE HER, SHE HAS NO HOME, SHE CAN'T GET ANY OF HER STUFF. REASSURED HER SHE WILL HAVE A NEW PLACE TO GO AND SHE WILL GET HER STUFF BACK AT HER NEW HOME. WAS WANTING SOMETHING TO HELP HER SLEEP JUST PRIOR TO LUNCH AND EXPLAINED TO HER ITS NOT THE RIGHT TIME TO SLEEP AND CLOSED HER CURTAINS AND TURNED LIGHT OFF. BETTER ONCE LUNCH WAS HERE. SHOWER GIVEN THIS MORNING. REPORTING RESTLESS LEGS AT DINNER TIME. SPOKE WITH MD ON PHONE AND HE STATED TO GIVE HS REQUIP.
--- NOTE | 2021-04-10 11:58 | NUR ---
Patient is lying in bed and alert. Patient tells me that she has questions about [facility] contact [facility], [facility] and how to move forward with placement after making some horrible mistakes with her behavior. I contact patient's Transplant Worker Aye Guido, who agrees to see the patient today if possible. I then return to pt's rm to reassure her that someone will becoming to help answer these questions who is much more qualified then I am. Patient voices appreciation.
--- NOTE | 2021-04-10 18:33 | NUR ---
SHIFT SUMMARY 65 YEAR FEMALE ADMITTED WITH LITHUM TOXICITY. PT HAS BEEN A&O, PLEASANT AND COOPERATIVE WITH CARE TODAY. PT EXPRESSED SOME CONCERN ABOUT WHERE SHE WAS GOING TO LIVE AND ASKED WITH THE NURSING STAFF AND DR COULD CALL HER PREVIOUS LONG-TERM AND PUT IN A GOOD WORD FOR HER TO BE ACCEPTED BACK. PT REQUESTED TO SPEAK WITH HER "COUNSELOR" FROM YESTERDAY AND PASTORAL CARE CAME IN TO VISIT PT ON REQUEST. THIS AFTERNOON PT STATED THAT SHE NEEDED TO CALL HER SISTER AND TELL HER GOODBYE BECAUSE SHE FELT LIKE SHE WAS GOING TO TONIGHT. RN REASSURED HER THAT SHE WAS DOING WELL AND OFFERED MEDICATED HER WITH ATIVAN FOR ANXIETY AND APAP FOR C/O MILLER PER EMAR, PT THEN APPEARED TO REST COMFORTABLY. NO OTHER CHANGES TO REPORT THIS SHIFT.
--- NOTE | 2021-04-11 04:09 | NUR ---
SHIFT SUMMARY ADMITTED FOR LITHIUM TOXICITY. FULL CODE. PLAN IS FOR PLACEMENT IN [facility]. SHE IS A [facility]. SHE WAS PREVIOUSLY AT [facility], THEN [facility]. SHE HAS HAD SIGNIFICANT WEIGHT LOSS WHILE AT THE [facility]. SHE HAS LABILE MOODS, SHE DID HAVE INAPPROPRIATE SPEECH UNTIL I REDIRECTED HER. SHE IS INDEPENDENT IN ROOM. I DID GIVE HER PRN MEDICATIONS FOR ANXIETY AND RESTLESS LEGS.
--- NOTE | 2021-04-11 11:55 | NUR ---
PT A/O X1. STATES WANTS TO KNOW WHEN LEAVES. ADDRESS, MAPS TO GET THERE. EXPLAIND DONT KNOW WHEN, OR WHERE YET, BUT GLAD SHE IMPROVING. REQUESTED PHONE. GAVE TO HER. IT WAS IN HER BELONGINGS. H/R REG, NO MURMER NOTED. NO TELE. LUNGS CLEAR, RESP EASY, UNLABORED. ON R.A. BT X4 LAST BM THIS AM PER PT. VOIDS BSC. INDEPENDANT IN ROOM. BED IN LOW POSITION, CALL LITE IN REACH, CALLS APPROP
--- NOTE | 2021-04-11 18:02 | NUR ---
pt pleasant today. fixated on lack of smoking. took shower today. iv wrapped adequately. concerns about discharge and placement. no other concrns noted toyda. bed in low position, ca lllite in reach. calls approp
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
--- NOTE | 2021-04-12 16:25 | NUR ---
PT MOSTLY PLEASANT TODAY. DID C/O HEADCHE AND FEELING ANXIOUS THIS AFT. MEDICATED APPROP. HAS BEEN AMBULATING ABOUT ROOM TODAY. NO NEW CONCERN NOTED TODAY. BED IN LOW POSITION, CALL LITE IN REACH, CALLS APPROP
--- NOTE | 2021-04-13 04:59 | NUR ---
SHIFT SUMMARY 65 YR F ADMITTED ON 03/24/21 FOR LITHIUM OVERDOSE. SHE IS INDEPENDANT IN THE ROOM BUT TENDS TO GET UPSET IF SHE DOESNT GET HER WAY OR GET SOMETHING SHE ASKED FOR. NO ACUTE OR SIGNIFICANT CHANGES FROM PRIOR SHIFT. PRIOR TO THIS HOSPITALIZATION SHE [facility]. SHE CANNOT GO BACK THERE SO THE PLAN IS FOR A SNF OR ADULT [facility] CARE.
--- NOTE | 2021-04-13 18:33 | NUR ---
PT IS A/OX3, COOPERATIVE SOMEWHAT. THE PT APPEARS TO BE BREATHING EASILY ON RA. THE PT REPORTED HAVING A HEADACHE TODAY, TYLENOL, AND ATIVAN WAS GIVEN. THIS AM. THE PT WAS AGITATED T/O THE DAY SERAQUEL WAS GIVEN NEEDED. THE PT SUGGESTED SUICIDAL IDEATION TODAY AND SCORED MODERATE SI ON THE SCREENING FORM. DR. PEREZ WAS CALLED AND A RECONSULT ORDER WITH DR. YORK WAS ORDERED. FACE SHEET FAXED TO ER. THE PT WAS PLACED IN MODERATE SI PRECAUTIONS. CALL LIGHT IN REACH, WILL CONTINUE TO MONITOR AND ASSESS FOR CHANGES
--- NOTE | 2021-04-14 05:49 | NUR ---
PT DENIES HAVING THOUGHTS OF HARMING SELF AND STATES SHE IS FEELING GOOD. PT HAS BEEN PLESANT AND COOPERATIVE.
--- NOTE | 2021-04-14 18:23 | NUR ---
PT IS A/OX3. COOPERATIVE. THE PT THIS AM WAS AGITATED AND WORRIED ABOUT HER STORAGE UNIT BILL AND BELONGINGS. THE PT WAS ASSISTED WITH HER NEEDS AND THE PHONE SO THAT SHE COULD TAKE CARE OF HER NEEDED BUISINESS. THE PT WAS MUCH CALMER AFTER THAT. PT WAS GIVEN ATIVAN X1 TODAY AND TYLEONL FOR HEADACHE. THE PT APPEARS TO BE BREATHING EASY ON RA AT THIS TIME. DR. YORK CONSULTED WITH THE PT AND THE PT WAS REMOVED FROM SI PRECAUTIONS. CALL LIGHT IN REACH. WILL CONTINUE TO MONITOR AND ASSESS FOR CHANGES
--- NOTE | 2021-04-15 04:51 | NUR ---
SHIFT SUMMARY PT AWAKE OFF AND ON THROUGHOUT THE NIGHT. MOOD IS LABILE. PT BECOMES HYPER FOCUSED ON THINGS. WAS STATING THAT SHE HAD SOME BEADS HANGING FROM HER WALKER AND THAT SOMEONE HAD STOLEN THEM. FREQUENTLY BRINGING IT UP. BECAME QUITE ANXIOUS ABOUT IT. MEDICATED X 1 WITH 2 MG PO ATIVAN WITH GOOD EFFECT. PT HAS DELUSIONAL THINKING. MAKING STATEMENTS LIKE DEE BAUTISTA WAS IN HER BED YESTERDAY MORNING. PT COMPLAINED OF HEADACHE. MEDICATED W/ TYLENOL. BLOOD PRESSURE ALSO ELEVATED. SCHEDULED APRESOLINE GIVEN. IMPROVED SLIGHTLY THIS AM. OTHERWISE NO ACUTE CHANGES THIS EVENING. WILL CONTINUE TO MONITOR.
[2021-04-15 17:03] LABS: Source, Urine Voided
[2021-04-15 17:05] LABS: Appearance, Urine Clear (Clear); Bilirubin, Urine Neg (Neg); Blood, Urine Neg (Neg); Color, Urine Yellow (P-Yellow); Glucose Qualitative, Urine 2+ (Neg); Ketones, Urine Neg (Neg); Leukocyte Esterase, Urine Neg (Neg); Nitrite, Urine Neg (Neg); Protein, Urine 3+ (Neg); Specific Gravity, Urine 1.015 (1.003-1.022); Urobilinogen, Urine NORM (Normal)
[2021-04-15 17:15] LABS: Bacteria Many /hpf; Red Blood Cells, Urine 0-2 /hpf (0-2); Squamous Epithelial Cells Few /hpf (Few)
--- NOTE | 2021-04-15 17:45 | NUR ---
ALERT. ORIENTED. BIPOLAR SO PERSEVERATES ON THINGS. BEADS THAT SHE THOUGHT WERE STOLEN WERE FOUND BY THIS RN AND PLACED ON HIGH SHELF SO SHE CAN SEE THEM. HAS A DEBIT (?) CARD IN ROOM AND HAVE HAD TO TAKE IT OFF FOOD TRAY TWICE SO IT DOES NOT GET TAKEN AWAY WITH MEAL TRAY. U/A SENT PATIENT C/O DYSURIA. C/O RT HIP PAIN THIS A.M AND STS " I COULDN'T ADJUST MY POSITION BECAUSE DEE BAUTISTA WAS IN BED WITH ME." COOPERATIVE. INDEPENDENT IN ROOM. UNLABORED RESPIRATIONS. WCTM
--- NOTE | 2021-04-16 03:55 | NUR ---
SHIFT SUMMARY ALERT AND ORIENTED. CONTINUES TO COMPLAIN OF BURNING WITH URINATION, DECREASED UO, AND DIFFICULTY STRATING URINE STREAM. UA WAS COLLECTED AND SENT BY DAY SHIFT. TYLENOL GIVEN FOR RIGHT HIP PAIN. REQUIP GIVEN FOR RESTLES LEG SYNDROME. PATIENT ANXIOUS REGARDING PLACEMENT AND ASKED QUESTIONS REGARDING BARRIERS TO DC. SPOKE WITH PATIENT AT LENGTH ALL QUESTIONS ANSWERED AND CONCERNS ADDRESSED.
--- NOTE | 2021-04-16 16:34 | NUR ---
PATIENT IS ALERT AND ORIENTED X3-4. PATIENT IS OCCASIONALLY CONFUSED AND FIXATED ON VARIOUS THINGS THROUGHOUT DAY. PATIENT HAS HAD NO COMPLAINTS OF SOB, NAUSEA, VOMITTING THIS SHIFT. PATIENT COMPLAINED OF A HEADACHE, MEDICATED WITH TYLENOL PER EMAR. PATIENT HAS HAD ANXIETY AND MEDICATED WITH ATIVAN. NO ACUTE EVENTS THIS SHIFT. VITAL SIGNS REVIEWED. WILL MONITOR UNTIL SHIFT CHANGE.
--- NOTE | 2021-04-18 17:17 | NUR ---
SUMMARY PT RESTING QUIETLY IN BED WATCHING TV, PT HAS BEEN PLEASANT AND COOPERATIVE WITH CARE T/O THE DAY, INDEP IN THE ROOM, UP TO THE SHOWER WITH MIN ASSIST, PT MED PER EMAR FOR ANXIETY AND HEADACHE, PT REPORTS GOOD RESULTS, VSS, NO COMPLAINTS, WILL CONT TO MONITOR
--- NOTE | 2021-04-19 04:32 | NUR ---
SHIFT SUMMARY A&OX3, CALM AND COOPERATIVE, NO BEHAVIORAL ISSUES OVERNIGHT. LUCID THOUGHTS AND ABLE TO HOLD MEANINGFUL CONVERSATION. RESLTESS LEGS AND ANXIETY TREATED PER EMAR. SLEPT WELL THROUGH THE NIGHT. NO SIGNIFICANT EVENTS.
--- NOTE | 2021-04-19 17:27 | NUR ---
SUMMARY PT RESTING QUIETLY IN BED, PT HAS BEEN EMOTIONAL AND AGITATED TODAY, UPSET SHE CANNOT GO OUT TO SMOKE, STATES SHE FEELS THOUGH SHE IS BEING PUNISHED, PT MED PER EMAR FOR AGITATION AND ANXIETY, VSS, WILL CONT TO MONITOR
--- NOTE | 2021-04-20 03:44 | NUR ---
SUMMARY: PT A/OX2-3 BUT SHE WAS QUITE DROWSY AND FORGETFULL THIS SHIFT. HS SEROQUEL WAS HELD AND PRN DOSE NEVER SEEMED NECESSARY. SHE WAS NOTED TO FIXATE ON THINGS, FREQUENTLY REQUESTING SUGARY SNACKS [place] AND REQUIRING FREQ REMINDERS RE: SITUATION, HYPERGLYCEMIA AND DIET, CBG 331 AT HS W/INSULIN RECIEVED PER EMAR. REORIENTATION CUES SEEMED TO EASILY FRUSTRATE HER BUT SHE REMAINED PLEASANT AND COOPERATIVE W/CARE. REQUIP PROVIDED PER PT REQUEST FOR TOLERABLE RELIEF OF RESTLESS LEGS AND NO OTHER COMPLAINTS EXPRESSED. VSS/AFEBRILE, NO ACUTE CHANGES. GUARDIANSHIP W/PLACEMENT PENDING. WCTM AND REPORT TO DAY RN.
--- NOTE | 2021-04-20 20:10 | NUR ---
PT HAS A TENDENCY TO FIXATE ON A TOPIC. PT REPORTED SHE THOUGHT SHE HAD LOST 30 LBS, BUT WAS TOLD TODAY, THIS ISN'T SO SINCE SHE HAS BEEN IN THE HOSPITAL. PT REPORTS THEY "ALWAYS TAKE MY DINNER TRAY AWAY" - I REPORTED TO PT ITEMS AVAILABLE IN THE PANTRY AFTER HER BLOOD SUGAR IS TAKEN TONIGHT. PT DENIES ANY COMPLAINTS OF HEADACHE, CHEST PAIN, SOB. WATER AT BEDSIDE. BED ALARM ON FOR PT SAFETY. BED IN LOW POSITION. CALL LIGHT WITHIN REACH.
--- NOTE | 2021-04-21 04:31 | NUR ---
SHIFT SUMMARY - PT HAD ONE EPISODE, 2 HOURS AFTER RECEIVING SEROQUEL DOSE, WHERE SHE WAS CONFUSED, VERY DROWSY, BUT ASKING FOR FOOD/SNACKS - PROVIDED. PT WAS REORIENTED TO ROOM/CALL LIGHT. PT WAS ABLE TO FEED HERSELF AND ATE 1/2 SANDWICH, PUDDING, AND 1 JELLO AT THIS TIME. BED ALARM ON FOR PT SAFETY. PT HAS BEEN SLEEPING FOR APPX 5 HOURS. CALL LIGHT WITHIN REACH. FLUIDS AT BEDSIDE. BED IN LOW POSITION. WILL CONTINUE TO MONITOR UNTIL AM SHIFT CHANGE.
--- NOTE | 2021-04-21 16:04 | NUR ---
Patient is sitting on the EOB and alert. Patient immediately tells me, "Everyday I dream of jumping out that window, hoping to . I cuss at the staff, yell, scream, steal and complain about the injustice of not being able to smoke my cigarettes. This afternoon, however, I heard they may have found a place for me to move to and I felt like I might have a hope and would want to behave a little better." I then asked, "If you can behave nicely when you want, why don't you act with kindness all the time? And then pt told all the reasons why she is angry and why most people don't deserve her kindness. I redirect her back to her orginal happy place of a possible relocation. I provide therapeutic listening and a calming presence. I will continue to remain available to patient and family.
--- NOTE | 2021-04-21 16:21 | NUR ---
SKIN/WOUND REASSESSMENT: L LATERAL MALLEOLUS: SITE OF PREVIOUS SURGERY, WELL HEALED AND HAS SCAR. COVERED WITH MEPILEX DRESSING. PT C/O DISCOMFORT. DRESSING REMOVED WITHOUT INCIDENT. THERE ARE TWO SMALL PUNCTURE-TYPE WOUNDS IN THE CENTER OF MALLEOLUS. NO DRAINAGE, ERYTHEMA, EDEMA, OR ELEVATED TEMPERATURE NOTED. PLACED NEW MEPILEX DRESSING. TOLERATED WELL.
--- NOTE | 2021-04-21 17:31 | NUR ---
SHIFT SUMMARY: MENTATION LABILE TODAY. WAS VERY FIXATED ON HER "STUFF", WANTED/DEMANDED HELP TO BRING HER BELONGINGS DOWN HERE FROM [facility] IN [place]. THIS AUTHOR SPOKE TO PT'S DAUGHTER GUILLAUME TO CLARIFY SOME THINGS THAT PT HAD SAID, GAVE UPDATE. TEARFUL,AGITATED; SEROQUEL AND ATIVAN GIVEN, WHICH HELPED HER IMMENSELY, WAS MUCH MORE CALM AND COOPERATIVE AFTER. GETTING UP TO BR INDEPENDENTLY. DRESSING CHANGED ON L ANKLE. EATING 100% OF MEALS. KNITTING MACHINE OPERATOR HELPER SAW PT TODAY, MAY HAVE PLACEMENT ARRANGED, WILL CONTINUE TO FOLLOW.
--- NOTE | 2021-04-22 05:43 | NUR ---
SHIFT SUMMARY A/O 2-3, FORGETFUL AT TIMES. EASILY AGITATED T/O NIGHT BUT REDIRECTABLE. VSS, NO ACUTE CHANGES AT THIS TIME. BED IN LOWEST POSITION WITH CALL LIGHT IN REACH. WILL CONTINUE TO MONITOR AND REPORT TO ONCOMING RN.
--- NOTE | 2021-04-22 16:42 | NUR ---
SPOKE TO PT'S SON ROMA, , GAVE UPDATE ON PT'S CONDITION AND PLAN FOR PLACEMENT [facility].
--- NOTE | 2021-04-22 19:16 | NUR ---
SHIFT SUMMARY: PT FIXATED ON POSSIBLE D/C TO [facility] IN [place] THAT SHE STATES WAS "PROMISED" TO HER BY SW YESTERDAY. HAD TO EXPLAIN TIMELINE OF EVENTS THAT NEED TO HAPPEN BEFORE SHE WOULD BE DISCHARGED. SHE WAS TEARFUL OFF AND ON THROUGHOUT THE DAY, STATING "NO ONE CARES WHAT HAPPENS TO ME" AND THAT SHE WISHED SHE WAS , BUT THAT "IT WOULD HURT" IF SHE DID THAT. HAD TO NEGOTIATE FOR HER TO TAKE A SHOWER TODAY. GAVE UPDATE TO DAUGHTER GUILLAUME AND SON ROMA BY PHONE. REQUIRED SEROQUEL AND ATIVAN FOR AGITATION. REMOTE MONITORING IS KEEPING EYE ON HER. DENIED PAIN. GOOD APPETITE, BG A LITTLE ELEVATED D/T SNACKS.
--- NOTE | 2021-04-23 02:57 | NUR ---
PT IS ALERT AND ORIENTED X4. COMPLAINS OF LOWER LEG PAIN, BUT STATES IS TOLERABLE DURING REST. SHE ALSO COMPLAINS OF FEELING ANXIOUS. MEDICATION GIVEN TO HELP HER TO FEEL CALM. SHE IS FEELING AGITATED BECAUSE SHE DID NOT GET TO GO HOME TODAY AND THAT ALL HER CHILDREN DID NOT CALL HER TODAY. EDUCATED PATIENT ABOUT FALL RISK. PT IS NOW LAYING HER BED SLEEPING WITH BED ALARM ON AND IN LOWEST POSITION. CALL LIGHT WITHIN REACH.
--- NOTE | 2021-04-23 17:32 | NUR ---
PATIENT IS ALERT AND ORIENTED TO SELF AND FOLLOWING DIRECTIONS. SHE BECOMES AGITATED AT TIMES WITH FAMILY AND STAFF. SHE IS FORGETFUL. PATIENT SLEEPS BETWEEN MEALS. WILL CONTINUE TO MONITOR
--- NOTE | 2021-04-24 05:00 | NUR ---
SHIFT SUMMARY AOX3 WITH SOME CONFUSION AT TIME CALM MOOD AND PLEASANT IN THIS SHIFT PATIENT QUIETLY RESTING MOST OF THE NIGHT NO BEHAVIOURS NOTED REQUESTED FOR ATIVAN BEFORE BED ADMIN PER ORDER
--- NOTE | 2021-04-24 18:00 | NUR ---
SHIFT SUMMARY- PT WAS AGITATED THIS SHIFT. SHE IS EATING AND DRINKING WELL. SHE IS AMBULATING TO THE RESTROOM. SPOKE TO HER DAUGHTER ON THE PHONE THIS AFTERNOON. SPOKE TO COMPRESSOR STATION ENGINEER CHIEF. PLAN IS FOR DAUGHTER TO TOUR A CARE FACILITY ON FOR PLACMENT. UPDATED DR. YORK OF MENTAL STATUS OF PT. SHE HAS A SPLINTER IN HER RIGHT FOOT, SOAKED, ATTEMPTED TO REMOVE.
--- NOTE | 2021-04-25 05:19 | NUR ---
SHIFT SUMMARY PATIENT NOTED TO BEEN ANGRY IN THE BIGINING OF THE SHIFT STATING THAT HER DAUGHTER DOESNT CARE ABOUT HER C/0 PAIN TO HER MARIA ESTHER LOWER LEGS NOTED TO BE WEAK AND DROWSY WHEN TRIED TO GET UP TO USE THE BATHROOM ASSISTED BY NURSE AND TYLENOL PRN ADM WITH POSTIVE EFFECT .
--- NOTE | 2021-04-25 17:05 | NUR ---
Shift Summary AOx3, frequent forgetfulness. Patient has been anxious and agitated throughout day. Dissatisfied with Dr. Trinidad's answers to her question RE discharging. Demanded this RN notify her daughter that staff lied about finding a place for her to discharge to. Requested this RN provide her children with her "suicide note" but then later asked to take back her note stating "I would never to that to my children. They shouldn't have to go through that." Patient upset and fearful of abandonment from her children. Patient attempted to make several phone calls to her children with no avail. Medicated for agitation and anxiety with PRN meds, good effect received. Up independently to bathroom. C/O bothersome splinter in R foot. Foot soaked in warm soapy water for comfort. Appetite is good. L/S clear. WCTM.
--- NOTE | 2021-04-26 03:52 | NUR ---
SHIFT SUMMARY A/O X3, SOME CONFUSION NOTED AT TIMES. ABLE TO MAKE NEEDS KNOWN. COOPERATIVE WTIH CARE. ANSWERS QUESTIONS APPROPRIATELY. C/O PAIN/DISCOMFORT; MEDICATED PER EMAR. SBA /c FWW; NOTED STEADY GAIT. NO ACUTE CHANGES NOTED OVERNIGHT. BED REMAINS IN LOWEST POSITION; ALARM ON. CALL LIGHT AND BELONGINGS WITHIN REACH. AWAITING PLACEMENT. REPORT TO ONCOMING RN.
--- NOTE | 2021-04-26 17:35 | NUR ---
SHIFT SUMMARY PT AOX2; CONFUSED AT TIMES. VERY AGITATED, ANXIOUS, AND ANGRY. PT RECEIVED MEDICATION FOR ANXIETY AND AGITATION PER DR ORDER. PT ALSO C/O OF PAIN, MEDICATEDX1. AWAITS PLACEMENT. BED IS IN THE LOWEST POSITION AND CALL LIGHT WITHIN REACH.
--- NOTE | 2021-04-27 04:38 | NUR ---
65 year old Female PT of [facility] [place] . She was admitted with lithium toxicity & had had lithium DC. She has PTSD Bipolar DM, hypertension. Medicated with tylenol 650 mg po x 1 for lt foot pain with helpful effect. Interestingly PT states she would like a IV pain med for it's immediate effect. PT has guardianship recommended letter in Chart. DC planning for safe DC plan, DTR involved. PT observed within special care unit. She had no agressive outbursts. Recently completed oral antibiotics to treat UTI.
--- NOTE | 2021-04-27 10:57 | NUR ---
PATIENT AGITATED REPEATEDLY VOICING THAT SHE HAS A SPLINTER IN HER FOOT. THERE HAVE BEEN A FEW TIMES THIS MORNING THAT SHE THREW THINGS OFF OF HER OVERBED TRAY AND REPEATEDLY COMPLAINED ABOUT NOT GETTING EGGS WITH BREAKFAST. MEDICATED PER E-MAR.
--- NOTE | 2021-04-27 16:19 | NUR ---
AT APPROXIMATELY 1530, WATER STEVENS REMOVED FROM PATIENT'S ROOM BECAUSE OF THE CONCERN OF HER FALLING SHE FILLED THE STEVENS UP HERSELF. FLOOR DRIED OF SPILLED WATER. PATIENT WAS AGITATED THAT THE WATER STEVENS WAS BEING REMOVED. REQUESTED A TWEEZER OR SHARP OBJECT TO TRY TO REMOVED THE "SPLINTER" IN HER FOOT. WILL MONITOR.
--- NOTE | 2021-04-27 17:56 | NUR ---
MEDICATED TODAY WITH ATIVAN X 1 AND SEROQUEL X 2 FOR AGITATION. PATIENT CONTINUES TO CONSTANTLY TALK ABOUT THE "SPLINTER" IN HER TOE. TOLERATED FOOD AND PO FLUIDS. DISCHARGE PLANNING IN PROCESS PER STUDENT. WILL MONITOR.
--- NOTE | 2021-04-28 07:13 | NUR ---
65 year old [facility] [place] who had been sent over by [facility] & had lithium toxicity. She is off lithium on seroquel 300 mg po at HS. Ativan 1 mg po x 1 for anxiety.Tylenol for headache & rt foot pain with helpful effect. No agression cooperative. Removed sm splinter fron rt toe & covered with dry protective dressing. Enc PT not to go barefoot & leave bandaid on but she removed both while in bed.
--- NOTE | 2021-04-28 11:11 | NUR ---
PATIENT ANXIOUS AND TALKING REPEATEDLY ABOUT BEING WORRIED ABOUT D/C PLAN. MEDICATED WITH ATIVAN PER E-JUN.
--- NOTE | 2021-04-28 11:14 | NUR ---
SPOKE WITH DAUGHTERGUILLAUME AT [phone] ABOUT BRINGING OTC CORN PADS TO THE HOSPITAL FOR HER MOM TO USE PER THE VICYK MORSE'S REQUEST. THIS DAUGHTER STATES SHE HAS SEVERE EPILEPSY AND IS UNABLE TO DRIVE. ASKED IF THERE ARE ANY SIBLINGS/FRIENDS THAT MIGHT COULD DO THIS AND SHE SAID THERE WASN'T.
--- NOTE | 2021-04-28 11:57 | NUR ---
PATIENT VERBALIZING FEARS AND CONCERNS ABOUT BEING TRANSFERRED TO A LONG-TERM WITH MANAGING HER MEDS, ETC. SPOKE WITH TRACEE HOOKER DIGITAL COMPUTER SYSTEMS ANALYST TO SEE IF SOMEONE COULD DISCUSS THIS WITH HER. STATES THAT WILL BE WHEN A MORE SOLIFIED PLAN IS IN PLACE.
--- NOTE | 2021-04-28 13:57 | NUR ---
MEDICATED WITH SEROQUEL DUE TO VERBALIZED ANXIETIES ABOUT DISCHARGE PLAN.
--- NOTE | 2021-04-28 16:09 | NUR ---
Patient talks at length about her frustration about not being placed yet. I assure her that every effort is being made for her DC. She talks about her depression and her anxiety about being in the same rm for all these days. She tells me that her goals are; a roof over her head, [employer] fast food and smoking cigarettes. I remind that her treatment of the hospital staff is also what is looked at when placement (a roof over her head) is being considered. I provide therapeutic listening, gentle licensed professional counselor, explored sources of meaning and value and normalized her experience. I will continue to assist with the emotional/spiritual distress where pt will allow.
--- NOTE | 2021-04-28 16:59 | NUR ---
MEDICATED FOR C/O HEADACHE TODAY. MEDICATED FOR ANXIETY RELATED TO DISCHARGE PLAN. SEE E-MAR. SLIDING SCALE COVERAGE GIVEN. PATIENT HAS BEEN CALMER TODAY COMPARED TO YESTERDAY DAYSHIFT BUT STILL FREQUENTLY ASKS REPETITIVE QUESTIOINS RELATED TO DISCHARGE. ATTEMPTED TO GET HER DAUGHTER TO BRING A "CORN PAD" OTC TO THE HOSPITAL BUT SHE WAS UNABLE TO DO IT DUE TO NOT DRIVING SECONDARY TO EPILEPSY AND SAID THERE WERE NO OTHERS THAT COULD EITHER. SPOKE WITH ANIMAL ASSISTED THERAPIST TODAY. THEY PLAN TO DISCUSS FINAL DISCHARGE PLAN WITH PATIENT SOON THEY WERE WAITING TO HEAR ABOUT ACCEPTANCE TODAY FOR A [facility]. TALING ON PHONE AND CALM CURRENTLY. WILL MONITOR.
--- NOTE | 2021-04-29 09:53 | NUR ---
MEDICATED FOR SEROQUEL FOR AGITATION OVER NOT BEING ABLE TO FIND HER DRIVERS LICENSE.
--- NOTE | 2021-04-29 13:04 | NUR ---
MEDICATED WITH ATIVAN BECAUSE PATIENT IS ANXIOUS ABOUT NOT HAVING FOUND HER DRIVERS LICENSE AND IS TALKING ABOUT HER FOOT ISSUE AGAIN. NOW REQUESTING NUMBER FOR [employer] TO FIND OUT IF SOMEBODY HAS BEEN WONDERING HER HOUSE PLANTS.
--- NOTE | 2021-04-29 16:24 | NUR ---
MEDIATED FOR AGITIATION AND ANXIETY PER E-MAR. CARE MANAGEMENT WORKING ON SAFE DISCHARGE PLAN. PATIENT REASSURED WHEN CONCERNS VOICED. SAFETY CAMERA IN USE. AMBULATES INDEPENDENTLY. SLIDING SCALE INSULIN ADMINISTERED PER E-MAR. WILL MONITOR.
--- NOTE | 2021-04-30 05:24 | NUR ---
PATIENT IS ALERT AND ORIENTED X4. ABLE TO MAKE NEEDS KNOWN. BEHAVIOR HAS SIGNIFICANTLY IMPROVED FROM WHEN SHE FIRST ADMITTED TO THE UNIT. PLEASANT AND COOPERATIVE STAFF. MEDICALLY STABLE AT THIS TIME AND AWAITING PLACEMENT FOR DISCHARGE. PATIENT SLEEPING WITH CALL LIGHT WITHIN REACH.
--- NOTE | 2021-04-30 17:22 | NUR ---
NO ACUTE CHANGES PT AOX3 AND COOPERATIVE OF CARE. PT IS WALKING IN ROOM WELL ON HER OWN. PT TREATED FOR ANXIETY PER EMAR. PT HAS BEEN VERY FOCUSED ON HER DISCHARGE TOMORROW AND HAS BEEN TALKING TO DAUGHTER ON THE PHONE MOST OF THE DAY. NO DISTRESS NOTED CALL LIGHT WITHIN REACH WILL CONTINUE TO MONITOR.
--- NOTE | 2021-05-01 04:49 | NUR ---
PATIENT STARTED OUT THE SHIFT IN A BIT OF AN IRRITABLE MOOD HOWEVER I WAS ABLE TO CALM HER AND SHE WAS ABLE TO GET SOME GOOD SLEEP T/O THE NIGHT. SHE IS ANTICIPATING A DISCHARGE TO A PRISON THIS AFTERNOON AT 1300, ASIDE FROM THAT THE PATIENT HAS BEEN WITHOUT ANY ACUTE CHANGES TO REPORT OF AT THIS TIME. CALL LIGHT WITHIN REACH.
[2021-05-01] MEDS ORDERED: INSULANI SC (11:38)
[2021-05-01] MEDS ORDERED: Prinivil10 MG PO (11:53)
[2021-05-01] MEDS ORDERED: Ativan1 MG PO (11:53)
[2021-05-01] MEDS ORDERED: METF500 PO (11:54)
[2021-05-01] MEDS ORDERED: ROPI.25 PO (11:56)
[2021-05-01] MEDS ORDERED: HUMALOG100 UNIT/1 SC (11:58)
--- NOTE | 2021-05-01 12:15 | NUR ---
DISCHARGE NOTE PT DISCHARGE SCHEDULED FOR TODAY TO IN [place]. ORDERS REVIEWED AND IMPLEMENTED. D/C INSTRUCTIONS, HOME MED LIST, FOLLOW UP APPOINTMENTS AND D/C EDUCATION PROVIDED TO PTPT VERBALIZED UNDERSTANDING. PT EXPRESSED SOME ANXIETY ABOUT GOING TO A NEW HOME BUT OVERALL WAS LOOKING FORWARD TO IT. PT MEDICATED WITH SEREQUOL PRIOR TO LEAVING PER HER REQUEST TO HELP "CONTROL HER BEHAVIOR". PT [facility]SP[facility].
== END 2021-05-01 12:17 | disposition home or self-care (01) ==
LOC: ER 11:08 → ERHOLD 11:09 → MEDS 11:09 → ERHOLD 11:09 → ER 11:09 → MEDS 11:09 → ERHOLD 20:17 → MEDS 20:17 → ER 04-25 11:09 → MEDS 04-25 11:09
PROVIDERS: Emergency Medicine; Family Medicine; Internal Medicine; Nurse Practitioner Acute Care; ADMIT Hospitalist
DX: E86.0 Dehydration (principal); T43.595A Adverse effect of other antipsychotics and neuroleptics, initial encounter; G92.8 Other toxic encephalopathy; E11.9 Type 2 diabetes mellitus without complications; I10 Essential (primary) hypertension; E03.9 Hypothyroidism, unspecified; E78.5 Hyperlipidemia, unspecified; F43.10 Post-traumatic stress disorder, unspecified; F17.210 Nicotine dependence, cigarettes, uncomplicated; K59.00 Constipation, unspecified; F03.90 Unspecified dementia, unspecified severity, without behavioral disturbance, psychotic disturbance, mood disturbance, and anxiety; F31.9 Bipolar disorder, unspecified; N39.0 Urinary tract infection, site not specified; G25.81 Restless legs syndrome; R20.8 Other disturbances of skin sensation; X58.XXXA Exposure to other specified factors, initial encounter; Z79.899 Other long term (current) drug therapy; Z81.8 Family history of other mental and behavioral disorders
CPT/HCPCS: 36415; 51701; 70450; 74177; 80048; 80053; 80178; 81001; 82947; 83735; 84443; 85025; 87077; 87086; 87186; 87480; 87491; 87510; 87591; 87660; 96365-59; 96375-59; 97110; 97116; 97162; 97166; 97530; 97535; 99285-25; A9270; G0378; J0360; J0696; J1650; J1815; J2060; J2405; J7030; Q9967